=== PATIENT | female | born 1960 | race Caucasian/White ===

== ENCOUNTER → 2020-01-17 | Outpatient (CLI) | payer BC ==
[~2020-01-17] MED LIST: AMPDEX15CR; HYDACE5 PO; NAPR550 PO; RXHYDACE PO
[2020-01-19 13:04] LABS: CORNONAVIRUS (COVID19) CSH-NRL Negative (Negative)
== END | disposition home or self-care (01) ==
LOC: LAB EV 16:13 → LAB SHORT 16:13
PROVIDERS: Family Medicine
DX: J06.9 Acute upper respiratory infection, unspecified (principal); Z20.828 Contact with and (suspected) exposure to other viral communicable diseases
CPT/HCPCS: U0003

== ENCOUNTER 2021-08-07 09:45 | Day surgery (SDC) | payer BC | END 2021-08-07 10:15 | disposition home or self-care (01) | LOC: ORSCSDS 09:45 | DX: H25.11 Age-related nuclear cataract, right eye (principal); Z53.9 Procedure and treatment not carried out, unspecified reason | CPT/HCPCS: J2001; J2250; J3010; J3301; J7040 ==

== ENCOUNTER 2021-08-28 09:33 | Day surgery (SDC) | payer BC ==
[~2021-08-28] VITALS: Ht 162.6 cm; Wt 79.4 kg
[2021-08-28] MEDS ORDERED: OMEP20ER PO (10:35)
--- NOTE | 2021-08-28 10:40 | NUR ---
08/28/21 1040 Felicity Hager CALL LIGHT WITHIN REACH. TETRACAINE AT 1030, PLEDGETT AT 1035
--- NOTE | 2021-08-28 11:55 | NUR ---
08/28/21 1155 GURDEEP ESQUEDA DAUGHTER IN LAW GIVING PT RIDE HOME TODAY
== END 2021-08-28 12:01 | disposition home or self-care (01) ==
LOC: ORSCSDS 09:33
PROVIDERS: Ophthalmology
PROC: 08RJ3JZ Replacement of Right Lens with Synthetic Substitute, Percutaneous Approach (ICD-10-PCS; principal; 2021-08-28 11:00)
DX: H25.11 Age-related nuclear cataract, right eye (principal); H52.201 Unspecified astigmatism, right eye; K21.9 Gastro-esophageal reflux disease without esophagitis; Z79.899 Other long term (current) drug therapy
CPT/HCPCS: J2001; J2250; J3010; J3301; J7040; V2632

== ENCOUNTER 2021-09-04 11:49 | Day surgery (SDC) | payer BC ==
[~2021-09-04] VITALS: Ht 162.6 cm; Wt 80.2 kg
[~2021-09-04 11:49] MED LIST changes: +OMEP20ER PO
--- NOTE | 2021-09-04 12:57 | NUR ---
09/04/21 1257 Halley Jolly TETRACAINE:1248 PLEDGET: 1249 BY [facility] [email or web address]
--- NOTE | 2021-09-04 14:37 | NUR ---
09/04/21 1437 GIA [place] USED W/O ISSUE FOR TORIC LENSE.
== END 2021-09-04 15:09 | disposition home or self-care (01) ==
LOC: ORSCSDS 11:49
PROVIDERS: Ophthalmology
PROC: 08RK3JZ Replacement of Left Lens with Synthetic Substitute, Percutaneous Approach (ICD-10-PCS; principal; 2021-09-04 13:30)
DX: H25.12 Age-related nuclear cataract, left eye (principal); H52.202 Unspecified astigmatism, left eye; K21.9 Gastro-esophageal reflux disease without esophagitis; F90.9 Attention-deficit hyperactivity disorder, unspecified type; F32.A Depression, unspecified; Z79.899 Other long term (current) drug therapy
CPT/HCPCS: J2001; J2250; J3010; J3301; J7040; V2632

== ENCOUNTER → 2021-12-01 | Outpatient (CLI) | payer BC | END | disposition home or self-care (01) | LOC: LAB SHORT 18:21 → LAB 18:21 | DX: F90.9 Attention-deficit hyperactivity disorder, unspecified type (principal) | CPT/HCPCS: G0480 ==

== ENCOUNTER → 2024-03-21 | Outpatient (CLI) | payer BC ==
[2024-03-21 16:22] LABS: Appearance, Urine Clear (Clear); Bilirubin, Urine Neg (Neg); Blood, Urine 4+ (Neg); Color, Urine Yellow (P-Yellow); Glucose Qualitative, Urine Neg (Neg); Ketones, Urine Neg (Neg); Leukocyte Esterase, Urine 2+ (Neg); Nitrite, Urine Neg (Neg); Protein, Urine Neg (Neg); Urobilinogen, Urine NORM (Normal)
[2024-03-21 16:50] LABS: Bacteria Few /hpf; Squamous Epithelial Cells Few /hpf (Few)
== END | disposition home or self-care (01) ==
LOC: LAB 15:36 → LAB SHORT 15:36
PROVIDERS: Physician Assistant
DX: N39.0 Urinary tract infection, site not specified (principal); R30.0 Dysuria
CPT/HCPCS: 81001; 87077; 87086; 87186

== ENCOUNTER → 2024-04-13 | Outpatient (CLI) | payer BC ==
[2024-04-14 15:20] LABS: Source, Urine Clean Catch
[2024-04-14 17:35] LABS: U Amphetamine Screen DETECTED; U Barbituate Screen Not Detected; U Benzodiazapine Screen Not Detected; U Buprenorphine Screen Not Detected; U Cannabinoids Screen Not Detected; U Cocaine Screen Not Detected; U Methadone Screen Not Detected; U Methamphetamine Screen Not Detected; U Opiates Screen Not Detected; U Oxycodone Screen Not Detected; U Phencyclidine Screen Not Detected
[2024-04-14 17:52] LABS: Bacteria Few /hpf; Red Blood Cells, Urine 0-2 /hpf (0-2); Squamous Epithelial Cells Rare /hpf (Few); White Blood Cells, Urine 0-2 /hpf (0-5)
== END | disposition home or self-care (01) ==
LOC: LAB SHORT 15:18 → LAB 15:18
PROVIDERS: Physician Assistant
DX: R31.9 Hematuria, unspecified (principal); Z79.811 Long term (current) use of aromatase inhibitors
CPT/HCPCS: 81015; 87086

== ENCOUNTER → 2024-10-04 | Outpatient (CLI) | payer BC ==
[2024-10-05 15:20] LABS: Campylobacter Sp Detected (NOT DETECT); E. Coli O157 Not Detected (NOT DETECT); Enteroaggregative E. coli-EAEC Not Detected (NOT DETECT); Enteropathogenic E. coli-EPEC Not Detected (NOT DETECT); Enterotoxigenic E. coli-ETEC Not Detected (NOT DETECT); Salmonella Sp Not Detected (NOT DETECT); Shiga Toxin-prod E. coli-STEC Not Detected (NOT DETECT); Shigella/Enteroin E. coli-EIEC Not Detected (NOT DETECT); Vibrio Sp Not Detected (NOT DETECT)
== END ==
LOC: LAB SHORT 12:00
PROVIDERS: Student in an Organized Health Care Education/Training Program
DX: R15.9 Full incontinence of feces (principal)
CPT/HCPCS: 87507